=== PATIENT | female | born 2000 | race Caucasian/White ===

== ENCOUNTER 2019-06-20 09:12 | Emergency (ER) | payer MEDICAID, OTHER ==
[~2019-06-20] VITALS: Ht 162.6 cm; Wt 78.0 kg
[~2019-06-20 09:12] MED LIST: HYDR15SO7 PO; ONDA4TAB6 PO; SACC250C PO
[2019-06-20 09:49] LABS: BASOPHILS % (AUTO) 0.1 % (0-1); EOSINOPHILS % (AUTO) 0 % (0-6); HEMATOCRIT 48.4 % (35.0-45.0); HEMOGLOBIN 16.3 g/dl (12.0-16.0); LYMPHOCYTES # (AUTO) 0.8 X10'3 (1.1-4.8); MEAN CORPUSCULAR HEMOGLOBIN 31.3 PG (27.0-31.0); MEAN CORPUSCULAR HGB CONC 33.7 g/dL (33.0-36.5); MEAN PLATELET VOLUME 9.7 FL (7.4-10.4); MONOCYTES # (AUTO) 0.7 X10'3 (0-0.9); MONOCYTES % (AUTO) 4.6 % (2-12); NEUTROPHILS # (AUTO) 14.6 X10'3 (1.8-7.7); NEUTROPHILS % (AUTO) 90.3 % (42-75); PLATELET COUNT 267 X10'3 (140-440); RED BLOOD COUNT 5.21 X10'6 (4.20-5.60); RED CELL DISTRIBUTION WIDTH 13.8 % (11.5-14.5); WHITE BLOOD COUNT 16.2 X10'3 (4.5-11.0)
[2019-06-20 10:00] LABS: CLARITY,URINE SLIGHTLY CLOUDY (Clear); COLOR,URINE YELLOW (Yellow); GLUCOSE, URINE NEGATIVE (Neg); KETONES,URINE >=80 mg/dl (Neg); LEUKOCYTE ESTERASE ,URINE NEGATIVE (Neg); NITRITES, URINE NEGATIVE (Neg); OCCULT BLOOD,URINE SMALL (Neg); PH,URINE 5.5 (4.8-8.0); PROTEIN,URINE 100 mg/dl (Neg); URINE HCG NEGATIVE (NEG); UROBILINOGEN,URINE 0.2 E.U/dL (0.2-1.0)
[2019-06-20] MEDS ORDERED: ondansetron/PF 4mg/2ml inj IV ONE ×2 (10:00→12:15)
[2019-06-20] MEDS ORDERED: normal saline 1000ML IV soln IVB ONE ×2 (10:00→12:15)
[2019-06-20 10:01] LABS: UA COLLECTION TYPE NON-SPECIFIED
[2019-06-20 10:06] LABS: MUCUS STRANDS MODERATE /LPF (Neg)
[2019-06-20 10:07] LABS: ALANINE AMINOTRANSFERASE 30 U/L (12-78); ALBUMIN 4.7 G/DL (3.4-5.0); ALBUMIN/GLOBULIN RATIO 1.1 (1.1-1.5); ALKALINE PHOSPHATASE 111 IU/L (46-116); ANION GAP 26 (8-16); ASPARTATE AMINO TRANSFERASE 17 U/L (10-37); BILIRUBIN,TOTAL 0.8 MG/DL (0.1-1.0); BLOOD UREA NITROGEN 8 MG/DL (7-18); CALCIUM 9.7 MG/DL (8.5-10.1); CHLORIDE 100 MMOL/L (99-107); CREATININE 0.89 MG/DL (0.40-0.90); GLUCOSE 105 MG/DL (70-104); LIPASE 69 U/L (73-393); POTASSIUM 4.1 MMOL/L (3.5-5.1); SODIUM 137 MMOL/L (135-145); TOTAL PROTEIN 9.1 G/DL (6.4-8.2); eGFR 80 ML/MIN
[2019-06-20 10:10] LABS: BACTERIA,URINE 1+ /HPF (Neg); COARSE GRANULAR CAST 0-3 /LPF (NEGATIVE)
[2019-06-20 10:12] LABS: SQUAMOUS EPITHELIAL CELL,UR MODERATE /LPF (FEW); WBC,URINE 0-4 /HPF (0-4)
[2019-06-20] MEDS ORDERED: mag hydrox/Alum hydrox/simeth 30ml oral suspension PO ONE (10:20)
[2019-06-20] MEDS ORDERED: ketorolac trometh. 30mg/ml inj. IV ONE (10:20)
[2019-06-20] MEDS ORDERED: normal saline 1000ML IV soln IV ONE (11:25)
[2019-06-20 13:51] LABS: ALANINE AMINOTRANSFERASE 25 U/L (12-78); ALBUMIN 3.8 G/DL (3.4-5.0); ALBUMIN/GLOBULIN RATIO 1.1 (1.1-1.5); ALKALINE PHOSPHATASE 88 IU/L (46-116); ANION GAP 15 (8-16); ASPARTATE AMINO TRANSFERASE 13 U/L (10-37); BILIRUBIN,TOTAL 0.6 MG/DL (0.1-1.0); BLOOD UREA NITROGEN 6 MG/DL (7-18); CALCIUM 8.2 MG/DL (8.5-10.1); CHLORIDE 107 MMOL/L (99-107); CREATININE 0.75 MG/DL (0.40-0.90); GLUCOSE 90 MG/DL (70-104); POTASSIUM 4.3 MMOL/L (3.5-5.1); SODIUM 139 MMOL/L (135-145); TOTAL CARBON DIOXIDE 16.7 MMOL/L (24-32); TOTAL PROTEIN 7.2 G/DL (6.4-8.2); eGFR > 90 ML/MIN
[2019-06-20 14:19] VITALS: BP 106/45
[2019-06-20] MEDS ORDERED: dextrose 5%-1/2 normal saline 1,000 ML IV ONE (14:33)
[2019-06-20] MEDS ORDERED: iohexol 300mg/ml 100ml inj. ONE (14:38)
[2019-06-20] MEDS ORDERED: ONDA4TAB6 PO (15:34)
--- NOTE | 2019-06-20 17:05 | NUR ---
[facility] CALLED 20-25 MINUTE ETA
== END 2019-06-20 17:05 | disposition home or self-care (01) ==
LOC: ER 09:12
DX: R10.11 Right upper quadrant pain (principal); R10.13 Epigastric pain; R11.2 Nausea with vomiting, unspecified; F10.99 Alcohol use, unspecified with unspecified alcohol-induced disorder; Z79.899 Other long term (current) drug therapy; Y90.9 Presence of alcohol in blood, level not specified
CPT/HCPCS: 36415; 74176; 76700; 80053; 81001; 81025; 83605; 83690; 85025; 96361; 96374; 96375; 96376; 99284; J1885; J2405; J7030; J7040; Q9967

== ENCOUNTER 2020-04-15 09:44 | Day surgery (SDC) | payer BC ==
[2020-04-08 16:31] LABS: BASOPHILS % (AUTO) 0.4 % (0-1); EOSINOPHILS % (AUTO) 0.2 % (0-6); LYMPHOCYTES # (AUTO) 1.3 X10'3 (1.1-4.8); MEAN CORPUSCULAR HEMOGLOBIN 32.1 PG (27.0-31.0); MEAN CORPUSCULAR HGB CONC 33.8 g/dL (33.0-36.5); MEAN PLATELET VOLUME 8.9 FL (7.4-10.4); MONOCYTES # (AUTO) 0.3 X10'3 (0-0.9); MONOCYTES % (AUTO) 5.4 % (2-12); NEUTROPHILS # (AUTO) 4.1 X10'3 (1.8-7.7); PRE OP HEMATOCRIT 43.5 % (35.0-45.0); PRE OP HEMOGLOBIN 14.7 g/dL (12.0-16.0); PRE OP PLATELET COUNT 242 X10'3 (140-440); RED BLOOD COUNT 4.58 X10'6 (4.20-5.60)
[2020-04-08 16:45] LABS: PRE OP PROTIME 10.3 SECONDS (9.0-12.0)
[2020-04-08 16:49] LABS: ALBUMIN 4.2 G/DL (3.4-5.0); ALBUMIN/GLOBULIN RATIO 1.1 (1.1-1.5); ALKALINE PHOSPHATASE 72 IU/L (46-116); BLOOD UREA NITROGEN 14 MG/DL (7-18); BUN/CREATININE RATIO 17.5 (6.6-38.0); CALCIUM 9.6 MG/DL (8.5-10.1); CHLORIDE 101 MMOL/L (99-107); PRE OP ALT 26 U/L (30-65); PRE OP ANION GAP 8 (8-16); PRE OP AST 17 U/L (10-37); PRE OP BILIRUB, TOTAL 0.6 MG/DL (0.0-1.0); PRE OP GLUCOSE 102 MG/DL (70-104); PRE OP POTASSIUM 3.8 MMOL/L (3.4-5.1); PRE OP SODIUM 138 MMOL/L (135-145); TOTAL CARBON DIOXIDE 28.8 MMOL/L (24-32); eGFR 90 ML/MIN
[2020-04-08 17:04] LABS: HCG SERUM QL NEGATIVE
[~2020-04-15] VITALS: Ht 162.6 cm; Wt 63.0 kg
[2020-04-15] VITALS (10 sets, daily range): BP systolic 108–133; BP diastolic 52–84
[~2020-04-15 09:44] MED LIST changes: -HYDR15SO7 PO; +IBUP-860 PO; -ONDA4TAB6 PO; -SACC250C PO; +ceFAZolin 2gm in dextrose, iso 50 ML IV ONE; +famotidine 20mg tablet PO ONE; +ringers solution, lacted 1,000 ML IV SCH
[2020-04-15] MEDS ORDERED: diazepam 5mg tablet PO ONE (10:05)
[2020-04-15] MEDS ORDERED: BUPIVAcaine 0.25% w/Epi /PF 30ml vial ONE (11:31)
[2020-04-15] MEDS ORDERED: triamcinolone acetonide 40mg/ml inj ONE (11:32)
[2020-04-15] MEDS ORDERED: BUPIVACAINE liposomal/PF 13.3 MG/ML vial IM ONE (11:32)
[2020-04-15] MEDS ORDERED: Thrombin (Bovine) 5,000 unit vial TP ONE (11:32)
[2020-04-15] MEDS ORDERED: gelatin sponge, absorbable (Gelfoam 100) sponge TP ONE (11:32)
[2020-04-15] MEDS ORDERED: midazolam 2 mg/2 ml injection ONE ×2 (11:40→15:01)
[2020-04-15] MEDS ORDERED: fentaNYL /PF 50mcg/ml 5ml ampule ONE (11:41)
[2020-04-15] MEDS ORDERED: propofol inj 40 ML IV ONE (13:04)
[2020-04-15] MEDS ORDERED: fentaNYL/PF 50MCG/1 ML 2ML syringe ONE (13:09)
[2020-04-15] MEDS ORDERED: dexamethasone sod phosphate 4mg/ml inj. ONE (14:47)
[2020-04-15] MEDS ORDERED: acetaminophen 1,000mg/100ml IV 100 ML IV ONE (14:47)
[2020-04-15] MEDS ORDERED: ketorolac trometh. 30mg/ml inj. ONE (14:47)
[2020-04-15] MEDS ORDERED: ondansetron/PF 4mg/2ml inj ONE (14:47)
[2020-04-15] MEDS ORDERED: meperidine/PF 25mg/ml syringe ONE (14:53)
--- NOTE | 2020-04-15 14:54 | NUR ---
Received from OR via [facility] , accompanied by Anesthesiologist LEONIE and report given by Anesthesiolgist. PATIENT WITH 20G PIV IN RIGHT UE RUNNING LR AT 100. C.O. MILD PAIN TO BACK AREA. PUSH PULLS, SUPERVISOR CAB EQUAL. VSS. 10L MASK ON WITH 100% SATURATIONS. INCISION SITE TO BACK IS CDI. Addendum: 04/15/20 at 1515 by Gianfranco Quiros RN, RN Amended: Links added.
[2020-04-15] MEDS ORDERED: MIDAZolam 5mg/ml 2ml vial IV ONE (15:05)
[2020-04-15] MEDS ORDERED: morphine 4 MG/ML inj SYRINge IV PRN (15:05)
[2020-04-15] MEDS ORDERED: proCHLORperazine 10 MG/2 ml inj IV PRN (15:05)
[2020-04-15] MEDS ORDERED: morphine 2 MG/ML inj. syringe IV PRN (15:05)
[2020-04-15] MEDS ORDERED: ondansetron/PF 4mg/2ml inj IV PRN (15:05)
[2020-04-15] MEDS ORDERED: meperidine/PF 25mg/ml syringe IV PRN ×2 (15:05)
[2020-04-15] MEDS ORDERED: ringers solution, lacted 1,000 ML IV SCH (15:05)
[2020-04-15] MEDS: meperidine/PF 25mg/ml syringe IV PRN ×2 (15:22→15:46)
--- NOTE | 2020-04-15 16:24 | NUR ---
PATIENT AND FAMILY AND THEY HAVE VERBALIZED UNDERSTANDING, OPPORTUNITY TO ASK QUESTIONS GIVEN AND PATIENT COMFORTABLE WITH DC. IV TAKEN OUT WITHOUT COMPLICATION. PATIENT HAS MET ALL DC CRITERIA FOR DC HOME. I HAVE REVIEWED D/C INSTRUCTIONS WITH OUT VIA WHEELCHAIR WHERE PATIENT WAS TAKEN HOME WITH ALL BELONGINGS. FAMILY GAVE PATIENT TRANSPORT HOME. DRESSING TO BACK IS STILL CDI, FEMALE STUDENT ISABELA AMAYA TO ASSIST IN DRESSING PATIENT. SIG OTHER NATHANAEL KEEN TO TAKE PATIENT HOME. DISCUSSED INSTRUCTIONS WITH HIM WELL. Addendum: 04/15/20 at 1627 by Gianfranco Quiros RN, RN Amended: Links added.
== END 2020-04-15 16:24 | disposition home or self-care (01) ==
LOC: PAS 09:44
PROVIDERS: ATTEND Orthopaedic Surgery
DX: M51.17 Intervertebral disc disorders with radiculopathy, lumbosacral region (principal); F17.290 Nicotine dependence, other tobacco product, uncomplicated; F12.90 Cannabis use, unspecified, uncomplicated; K21.9 Gastro-esophageal reflux disease without esophagitis; Z79.01 Long term (current) use of anticoagulants; Z20.828 Contact with and (suspected) exposure to other viral communicable diseases; Z79.899 Other long term (current) drug therapy
CPT/HCPCS: 36415; 63030; 72100; 76000; 80053; 82948; 84703; 85025; 85610; 85730; 87635; A6402; C1758; C9290; J0131; J1100; J1885; J2175; J2250; J2270; J2405; J2704; J3010; J3301; J7050; J7120; A4215; A4618; A6449; A7000

== ENCOUNTER 2022-12-10 15:58 | Emergency (ER) | payer BC, MEDICAID ==
[~2022-12-10] VITALS: Ht 162.6 cm; Wt 99.4 kg
[~2022-12-10 15:58] MED LIST changes: -ceFAZolin 2gm in dextrose, iso 50 ML IV ONE; -famotidine 20mg tablet PO ONE; -ringers solution, lacted 1,000 ML IV SCH
[2022-12-10 16:41] LABS: URINE HCG POSITIVE (NEG)
[2022-12-10 16:42] LABS: BASOPHILS % (AUTO) 0.3 % (0-1); EOSINOPHILS % (AUTO) 0.2 % (0-6); HEMATOCRIT 45.7 % (35.0-45.0); HEMOGLOBIN 15.7 g/dl (12.0-16.0); LYMPHOCYTES # (AUTO) 1.4 X10'3 (1.1-4.8); MEAN CORPUSCULAR HEMOGLOBIN 32.2 PG (27.0-31.0); MEAN CORPUSCULAR HGB CONC 34.2 g/dL (33.0-36.5); MEAN CORPUSCULAR VOLUME 94.1 FL (78-98); MEAN PLATELET VOLUME 9.1 FL (7.4-10.4); MONOCYTES # (AUTO) 0.6 X10'3 (0-0.9); MONOCYTES % (AUTO) 6.1 % (2-12); NEUTROPHILS # (AUTO) 8.4 X10'3 (1.8-7.7); NEUTROPHILS % (AUTO) 80.4 % (42-75); PLATELET COUNT 294 X10'3 (140-440); RED BLOOD COUNT 4.86 X10'6 (4.20-5.60); RED CELL DISTRIBUTION WIDTH 13.3 % (11.5-14.5); WHITE BLOOD COUNT 10.5 X10'3 (4.5-11.0)
[2022-12-10 16:47] LABS: CLARITY,URINE CLOUDY (Clear); COLOR,URINE YELLOW (Yellow); GLUCOSE, URINE NEGATIVE (Neg); KETONES,URINE 40 mg/dl (Neg); LEUKOCYTE ESTERASE ,URINE NEGATIVE (Neg); NITRITES, URINE NEGATIVE (Neg); OCCULT BLOOD,URINE NEGATIVE (Neg); PH,URINE 5.5 (4.8-8.0); PROTEIN,URINE TRACE mg/dl (Neg); UROBILINOGEN,URINE 0.2 E.U/dL (0.2-1.0)
[2022-12-10 16:58] LABS: ALANINE AMINOTRANSFERASE 18 U/L (12-78); ALBUMIN/GLOBULIN RATIO 0.9 (1.1-1.5); ALKALINE PHOSPHATASE 111 IU/L (46-116); ANION GAP 9 (8-16); ASPARTATE AMINO TRANSFERASE 15 U/L (10-37); BILIRUBIN,TOTAL 0.6 MG/DL (0.1-1.0); BLOOD UREA NITROGEN 6 MG/DL (7-18); BUN/CREATININE RATIO 7.4 (10.0-20.0); CALCIUM 9.7 MG/DL (8.5-10.1); CHLORIDE 102 MMOL/L (99-107); CREATININE 0.81 MG/DL (0.40-0.90); GLUCOSE 108 MG/DL (70-104); LIPASE 53 U/L (73-393); POTASSIUM 3.7 MMOL/L (3.5-5.1); SODIUM 137 MMOL/L (135-145); TOTAL CARBON DIOXIDE 26.2 MMOL/L (24-32); TOTAL PROTEIN 8.3 G/DL (6.4-8.2); eGFR 87 ML/MIN
[2022-12-10 17:03] LABS: UA COLLECTION TYPE CLN CATCH MIDSTREAM
[2022-12-10 17:06] LABS: MUCUS STRANDS MANY /LPF (Neg); SQUAMOUS EPITHELIAL CELL,UR MANY /LPF (FEW)
[2022-12-10 17:07] LABS: BACTERIA,URINE 2+ /HPF (Neg); RBC,URINE 0-2 /HPF (0-2); WBC,URINE 0-4 /HPF (0-4)
[2022-12-10] MEDS ORDERED: normal saline 1000ML IV soln IVB ONE (18:25)
[2022-12-10] MEDS ORDERED: pantoprazole 40 MG vial IV ONE (18:25)
[2022-12-10] MEDS ORDERED: ondansetron/PF 4mg/2ml inj IV ONE (18:25)
[2022-12-10] MEDS ORDERED: pantoprazole 40MG/NS 100ML BAG 100 ML IV ONE (18:40)
[2022-12-10 19:18] LABS: BETA HCG,QUANTITATIVE 25182 mIU/ml
[2022-12-10] MEDS ORDERED: normal saline 1000ml 1,000 ML IV ONE (19:55)
[2022-12-10 20:00] VITALS: BP 147/89
[2022-12-10] MEDS ORDERED: ONDA4TAB12 PO (20:42)
== END 2022-12-10 20:58 | disposition home or self-care (01) ==
LOC: ER 15:59
DX: O21.0 Mild hyperemesis gravidarum (principal); Z3A.01 Less than 8 weeks gestation of pregnancy; G43.909 Migraine, unspecified, not intractable, without status migrainosus; I10 Essential (primary) hypertension
CPT/HCPCS: 36415; 80053; 81001; 81025; 83690; 84702; 85025; 96361; 96365; 96375; 99285; C9113; J2405; J7030

== ENCOUNTER 2025-05-03 18:01 | Emergency (ER) | payer MEDICAID ==
[~2025-05-03] VITALS: Ht 162.6 cm; Wt 102.0 kg
[~2025-05-03 18:01] MED LIST changes: +ONDA-243 PO
--- NOTE | 2025-05-03 19:08 | Physician Documentation ---
HPI ~ General Chief Complaint: Tooth Problem Stated Complaint: TOOTH PAIN Time Seen by MD: 19:03 Primary Medical Doctor: domenic hilario at [facility] History of Present Illness HPI Comment This is a 25-year-old female who reports known history of poor dentition, chronic wisdom teeth impaction, presents for evaluation of several days of progressive worsening right jaw pain, both upper and lower, but upper worse, the particular palliating factors, she reports that she has a difficulty opening her mouth and a longer able to open her mouth fully. This never happened in the past. [id number] medications are not helping. Reports subjective fever. Denies any difficulty breathing, denies voice changes or drooling. She vapes nicotine, uses marijuana, and drinks once a week. She states that there is a chance she might be . Medication Reconciliation Allergies: Coded Allergies: No Known Allergies (Unverified , 08/12/10) Scheduled PRN Ibuprofen (Ibu), 200 MG PO DAILY PRN for headache, (Reported) ONDANSETRON ODT 4mg tablet (Ondansetron Odt), 1-2 TABLET PO QID PRN for nausea/vomiting Past Medical History Past Medical History: Headache, Migraine, Hypertension Past Surgical History: no surgical history Other Past Family History: OBTAINED AND NON-CONTRIBUTORY TO CHIEF COMPLAINT Alcohol Use: Sober Drug Use: none Lives with: Mother, Family Lives In: Home Occupation: student Review of Systems ROS 10 point review of systems was performed and unless noted above in HPI is negative for acute process/complaint. Physical Exam Vital Signs: Temperature: 97.6, Source: Temporal, Heart Rate: 104, Respiratory Rate: 15, BP: 135/94, Pulse Oximetry: 95, Weight: 102.000 Physical Exam GENERAL: Awake, alert, oriented, GCS 15, no apparent distress, non-toxic appearing, answers questions, follows commands appropriately. Examined in triage, accompanied with significant other HEENT: Atraumatic, normocephalic, pupils equal, extraocular muscles intact, sclerae anicteric, mucus membranes moist, oropharynx is patent, no stridor. Poor dentition noted with multiple caries. The patient does have trismus. There is no floor of the mouth elevation. No drooling. No hot potato voice. No brawny submandibular erythema. NECK: supple, full active range of motion, trachea midline, no thyromegaly, no lymphadenopathy, no JVD. CARDIOVASCULAR: Tachycardic and regular rate/rhythm, no murmurs/gallops/rubs, Pulses are 2+ in all extremities and symmetric. Capillary refill less than 2 seconds. PULMONARY: Nonlabored, good air movement ,no respiratory distress, speaking in full sentences, clear to auscultation bilaterally, no wheezing, no ronchi, no rales, no accessory muscle use. GASTROINTESTINAL: Soft, non-tender, non-distended, normal active bowel sounds, no organomegaly, no pulsatile masses, no CVA tenderness. NEUROLOGIC: Lucid with normal mental status. Normal facial symmetry. Moves all extremities symmetrically and with purpose. No truncal ataxia. Speech is fluid without evidence of dysarthria or aphasia, no focal deficits appreciated. MUSCULOSKELETAL: There is full range of motion of all extremities. There is no joint pain or joint swelling or joint erythema. There is no muscle pain or tenderness or swelling. EXTREMITIES: warm, well-perfused, no cyanosis, no clubbing, no edema, no acute deformities. Skin: warm, dry, no rashes or lesions, no jaundice, no petechiae orpurpura. No ecchymosis. PSYCHIATRIC: Normal affect, normal insight, normal concentration. Focused exam: [] Progress Results/Orders Results/Orders Orders - ARSLAN OCHOA DO Ct Neck Soft Tissues (05/03/25 19:03) Ampicillin/Sulbac 3gm/Ns 100ml (Unasyn 3 (05/03/25 20:00) Culture Blood (05/03/25 19:03) Completed Orders - ARSLAN OCHOA DO Ct Neck Soft Tissues (05/03/25 19:03) Dexamethasone Inj (Decadron 10mg/Ml Inj) (05/03/25 19:03) Cbc/Diff (05/03/25 19:03) ESR (05/03/25 19:03) C-Reactive Protein (05/03/25 19:03) MG (05/03/25 19:03) Normal Saline 1000ml (0.9% Sodium Chlori (05/03/25 19:05) Hcg Serum Ql (05/03/25 19:03) CMP (05/03/25 19:03) Lacticsepsis (10/26/25 19:03) Iohexol 300mg/Ml 100ml Inj. (Omnipaque-3 (05/03/25 21:34) Morphine 4mg/Ml Inj. (Morphine Inj.) (05/03/25 21:40) Ondansetron Inj. (Zofran 4mg/2ml Vial) (05/03/25 21:40) Ketorolac Trometh 15mg/Ml Vial (Toradol (05/03/25 23:10) Medications Received in ER Medications (Trade) Dose Ordered Sig/Nirmala Route PRN Reason Start Time Stop Time Status Last Admin Dose Admin (Decadron 10mg/ ml inj) 10 mg ONCE STAT IV 05/03/25 19:03 05/03/25 19:06 DC 05/03/25 22:20 10 MG Ampicillin Sodium/ Sulbactam Sodium 100 ml @ 200 mls/hr Q6H IV 05/03/25 20:00 05/03/25 22:20 200 MLS/HR (0.9% sodium chloride (NS) 1000ml IV soln) 1,000 ml ONCE ONCE IVB 05/03/25 19:05 05/03/25 19:06 DC 05/03/25 22:05 1,000 ML (morphine inj.) 4 mg ONCE ONCE IV 05/03/25 21:40 05/03/25 21:41 DC 05/03/25 22:19 4 MG (Zofran 4mg/2ml vial) 4 mg ONCE ONCE IV 05/03/25 21:40 05/03/25 21:41 DC 05/03/25 22:19 4 MG Vital Signs 05/03/25 05/03/25 05/03/25 18:13 23:05 23:07 Temp 97.6 97.6 Pulse 104 92 Resp 15 16 16 B/P (MAP) 135/94 115/80 (92) Pulse Ox 95 98 Laboratory Tests Test 05/03/25 19:18 White Blood Count 9.0 Red Blood Count 4.79 Hemoglobin 14.2 Hematocrit 42.9 Mean Corpuscular Volume 89.6 Mean Corpuscular Hemoglobin 29.7 Mean Corpuscular Hemoglobin Concent 33.1 Red Cell Distribution Width 14.8 H Platelet Count 251 Mean Platelet Volume 9.2 Neutrophils (%) (Auto) 71.2 Lymphocytes (%) (Auto) 21.8 Monocytes (%) (Auto) 5.5 Eosinophils (%) (Auto) 1.0 Basophils (%) (Auto) 0.5 Neutrophils # (Auto) 6.4 Lymphocytes # (Auto) 2.0 Monocytes # (Auto) 0.5 Eosinophils # (Auto) 0.1 Basophils # (Auto) 0.0 CBC Comment Erythrocyte Sedimentation Rate 22 H Sodium Level 140 Potassium Level 3.9 Chloride Level 105 Carbon Dioxide Level 25.4 Anion Gap 10 Blood Urea Nitrogen 9 Creatinine 0.60 Estimated GFR/1.73 m2 > 90 BUN/Creatinine Ratio 15.0 Glucose Level 93 Lactic Acid Level 1.3 Calcium Level 8.9 Magnesium Level 2.1 Total Bilirubin 0.2 Aspartate Amino Transf (AST/SGOT) 13 Alanine Aminotransferase (ALT/SGPT) 25 Alkaline Phosphatase 153 H C-Reactive Protein 0.96 H Total Protein 8.1 Albumin 3.4 Globulin 4.7 H Albumin/Globulin Ratio 0.7 L Human Chorionic Gonadotropin, Qual Negative Chemistry Comments Microbiology Date/Time Source Procedure Growth Status 05/03/25 19:24 Blood Hand Left Blood Culture - Preliminary NEGATIVE (LESS THAN 24 HOURS) Resulted Medical Decision Making Additional information obtaine: old records, family Findings Facility Status: ED Holds, RME process The plan was discussed with the patient, who demonstrates clear understanding of the plan and is in agreement with the plan unless otherwise noted in the chart. All questions have been answered, all concerns were addressed unless otherwise documented. I was available throughout their ED stay for frequent reassessment and questions. Differential Diagnoses (considered and possible or likely): [Dental infection, dental abscess, myositis of muscles of mastication, peritonsillar abscess, retropharyngeal abscess, less likely Mario's angina, less likely osteomyelitis of the jaw] ??Differential Diagnoses (considered and unlikely, not requiring evaluation currently): [See above] MDM Data Please see HPI for the following: Independent Historians and external Records Review. Historian: [Patient] Independent Historians: ?[Record review] Medication Management: [Reviewed medication list] Social History and determinants: [Reviewed] Please see the body of the note for the following: Any independent interpretations of ECG, imaging studies. All vitals signs/haemodynamics, ordered tests were independently reviewed and interpreted by myself. Nursing triage complaint and vitals reviewed, additional nursing notes were reviewed as available and I agree unless otherwise noted or documented in contradiction in the chart Vital Signs: Independently reviewed Labs: Independently interpreted Imaging: Independently interpreted Old Medical Records: Independently reviewed, see HPI for relevant summary and information Pulse Oximetry: [96%] interpreted as [normal on room air] by me [Corporate Real Estate Specialist: Tachycardic Rate, Regular rhythm, no ectopy, sinus tachycardia. reviewed and interpreted by me] Additionally notably showing: [Who hemodynamics reviewed. The patient isn't febrile, initially tachycardic but improved. No evidence of hypotension respiratory distress. There is no leukocytosis. Normal platelets. Normal hemoglobin. Mildly elevated ESR. Chemistry is unremarkable. CRP is elevated. She is not . Advanced imaging was obtained showing lymphadenopathy but no abscess .] Tests considered but not ordered include: [Not applicable] Social Determinants of Health Impact: Patient was evaluated in [facility], [facility] [place] healthcare due to below par ratio of patient to medical providers. [] Comorbid Conditions Impacting Present Evaluation and Care/Treatment: [Poor dentition] Management Discussions with other Healthcare Providers: [Hospitalist regarding admission] Treatment and Disposition Medication Management (Given or considered): [Fluids, steroids, antibiotics]. See EMR for details Consideration for Hospitalization/Escalation/Deescalation of Care: Admission for observation has been considered, and appears to be necessary given presence of trismus. The patient likely we will require several rounds of IV antibiotics and steroids until resolution of trismus. ?ED Course:?[No clinical deterioration. No significant improvement either. In anticipation of eventual discharge after a period of observation with the resolution of trismus, antibiotics were already sent to the pharmacy for continuation of antimicrobial treatment on an outpatient basis.] ?Shared decision making:?[] Code status:?FULL Please see the full Electronic Medical Record for full details of nursing do cumentation, medications list, other records of complete past medical history and conditions, vital signs, laboratory studies, and any radiologic study interpretations by radiologists. Portions of this note were completed using Qompium dictation software and as a result there may exist minor errors in spelling. I have reviewed elements of past family and social history and agree as included in note. Differential Dx:Considerations: Include: Other (See the body of the main note) Departure Time of Disposition: 23:40 Disposition: ADMITTED INPATIENT Impression: Primary Impression: Dental abscess Additional Impressions: Dental caries Trismus Condition: Stable Discharge Instructions: Dental Pain Referrals: NO PRIMARY CARE PROVIDER (PCP) Prescriptions Amox Tr/Potassium Clavulanate (Augmentin 875-125 Tablet) 1 Each Tablet 1 TAB PO Q12H for 10 Days, #20 TAB Prov: ARSLAN OCHOA DO 05/03/25 Signature Scribe Signature: No scribe Attestation: Date: May 03, 2025 Time: 19:08 This note accurately reflects clinical decisions, work performed by myself, DO DON Dotson NICHOLAS M DO May 03, 2025 19:08
[2025-05-03 19:35] LABS: MEAN PLATELET VOLUME 9.2 FL (7.4-10.4); RED CELL DISTRIBUTION WIDTH 14.8 % (11.5-14.5)
[2025-05-03 19:53] LABS: HCG SERUM QL NEGATIVE
[2025-05-03 19:54] LABS: CREATININE 0.60 MG/DL (0.40-0.90); TOTAL CARBON DIOXIDE 25.4 MMOL/L (24-32); eCRCL 122 ML/MIN; eGFR > 90 ML/MIN
[2025-05-03] MEDS ORDERED: iohexol 300mg/ml 100ml inj. ONE (21:34)
[2025-05-03] MEDS: normal saline 1000ML IV soln IVB ONE (22:05)
[2025-05-03] MEDS: morphine 4 MG/ML inj SYRINge IV ONE (22:19)
[2025-05-03] MEDS: ondansetron/PF 4mg/2ml inj IV ONE (22:19)
[2025-05-03] MEDS: dexamethasone sod phosphate 10mg/ml inj IV STA (22:20)
[2025-05-03] MEDS: ampicillin/sulbac 3gm/NS 100ml 100 ML IV SCH (22:20)
--- NOTE | 2025-05-03 22:38 | RADIOLOGY REPORT ---
EXAM: CT CT NECK SOFT TISSUES W/ IV CONTRAST INDICATION: R upper and lower jaw pain, trismus Exam Date: 05/03/2025 09:55 PM COMPARISON: None TECHNIQUE: CT of the neck with intravenous contrast. RADIATION DOSE: CTDIvol: 16.23 mGy, DLP: 383.5 mGy*cm FINDINGS: Evaluation is mildly degraded by streak artifact from dental hardware. There are nonspecific mildly prominent cervical nodes. The fat planes of the neck appear intact. The airway and larynx are unremarkable. The parotid, submandibular and thyroid glands are unremarkable. The vascular structures of the neck appear patent. The limited visualized portions of the brain are unremarkable. The osseous structures are unremarkable. IMPRESSION: 1. Nonspecific mildly prominent cervical nodes.
[2025-05-03] MEDS: ketorolac trometh 15mg/ml vial 15 MG/ML ML IV ONE (23:39)
[2025-05-03] MEDS ORDERED: AMOX-117 PO (23:41)
[2025-05-04 00:10] VITALS: BP 132/96; PULSE 92; RESP 16; TEMP 97.6; O2SAT 97
[2025-05-05] MEDS ORDERED: DIAZ2TAB PO (19:25)
== END 2025-05-04 00:15 | disposition left against medical advice (07) ==
LOC: ER 18:02
DX: K04.7 Periapical abscess without sinus (principal); K02.9 Dental caries, unspecified; R25.2 Cramp and spasm; I10 Essential (primary) hypertension; F12.90 Cannabis use, unspecified, uncomplicated; F17.290 Nicotine dependence, other tobacco product, uncomplicated
CPT/HCPCS: 36415; 70491; 80053; 83605; 83735; 84703; 85025; 85651; 86140; 87040; 87077; 87186; 96365; 96375; 99285; J0295; J1100; J1885; J2270; J2405; J7030; Q9967

== ENCOUNTER 2025-05-05 15:04 | Emergency (ER) | payer MEDICAID ==
[~2025-05-05] VITALS: Ht 162.6 cm; Wt 113.6 kg
[~2025-05-05 15:04] MED LIST changes: +AMOX-117 PO
--- NOTE | 2025-05-05 15:53 | Physician Documentation ---
HPI ~ General Chief Complaint: Tooth Problem Stated Complaint: RECHECK Time Seen by MD: 15:13 Primary Medical Doctor: renetta lee obgyn at [facility] History of Present Illness HPI Comment This is a 25-year-old female who presents back to the emergency department due to right-sided dental pain, patient has been seen two days prior and advised to remain at the hospital for IV antibiotics due to trismus at the time, patient was discharged with oral antibiotics however returns as her symptoms are not significantly improving. Patient does report facial swelling has decreased significantly. Medication Reconciliation Allergies: Coded Allergies: No Known Allergies (Unverified , 08/12/10) Scheduled Amox Tr/Potassium Clavulanate (Augmentin 875-125 Tablet), 1 TAB PO Q12H Scheduled PRN Diazepam (Valium), 1 TAB PO TID PRN for muscle spasms Ibuprofen (Ibu), 200 MG PO DAILY PRN for headache, (Reported) ONDANSETRON ODT 4mg tablet (Ondansetron Odt), 1-2 TABLET PO QID PRN for nausea/vomiting Past Medical History Past Medical History: Headache, Migraine, Hypertension Past Surgical History: no surgical history Other Past Family History: OBTAINED AND NON-CONTRIBUTORY TO CHIEF COMPLAINT Alcohol Use: Sober Drug Use: none Lives with: Mother, Family Lives In: Home Occupation: student Review of Systems ROS As stated above in the HPI, otherwise all systems are reviewed and negative. Physical Exam Vital Signs: Temperature: 98.9, Heart Rate: 110, Respiratory Rate: 16, BP: 143/89, Pulse Oximetry: 98, Weight: 113.640 Oxygen Flow Rate: 0 Physical Exam VITALS: Reviewed and as above. GENERAL: Alert, nontoxic appearing, no apparent distress. HEENT: Mild Trismus present. No drooling, no voice hoarseness, no elevation of the tongue, no submandibular swelling, no facial swelling RESPIRATORY: No increased work of breathing, no respiratory distress, speaking in full clear sentences Progress Results/Orders Results/Orders Completed Orders - ANDRAE TAYLOR Cbc/Diff (05/05/25 16:07) BMP (05/05/25 16:07) Ketorolac Trometh 15mg/Ml Vial (Toradol (05/05/25 18:30) Diazepam Inj (Valium Inj) (05/05/25 18:30) Medications Received in ER Medications (Trade) Dose Ordered Sig/Nirmala Route PRN Reason Start Time Stop Time Status Last Admin Dose Admin (Toradol injection) 15 mg ONCE ONCE IM 05/05/25 18:30 05/05/25 18:33 DC 05/05/25 18:42 15 MG (Valium inj) 5 mg ONCE ONCE IM 05/05/25 18:30 05/05/25 18:32 DC 05/05/25 18:42 5 MG Vital Signs 05/05/25 05/05/25 05/05/25 05/05/25 15:09 17:45 18:42 19:32 Temp 98.9 98.3 98.6 Pulse 110 89 82 Resp 16 16 18 18 B/P (MAP) 143/89 115/73 (87) 118/72 Pulse Ox 98 98 99 O2 Flow Rate 0 0 Laboratory Tests Test 05/05/25 16:38 White Blood Count 9.1 Red Blood Count 4.57 Hemoglobin 13.7 Hematocrit 40.8 Mean Corpuscular Volume 89.2 Mean Corpuscular Hemoglobin 29.9 Mean Corpuscular Hemoglobin Concent 33.6 Red Cell Distribution Width 14.9 H Platelet Count 233 Mean Platelet Volume 9.3 Neutrophils (%) (Auto) 60.2 Lymphocytes (%) (Auto) 32.6 Monocytes (%) (Auto) 6.3 Eosinophils (%) (Auto) 0.6 Basophils (%) (Auto) 0.3 Neutrophils # (Auto) 5.5 Lymphocytes # (Auto) 3.0 Monocytes # (Auto) 0.6 Eosinophils # (Auto) 0.1 Basophils # (Auto) 0.0 CBC Comment Sodium Level 141 Potassium Level 3.7 Chloride Level 105 Carbon Dioxide Level 27.6 Anion Gap 8 Blood Urea Nitrogen 11 Creatinine 0.73 Estimated GFR/1.73 m2 > 90 BUN/Creatinine Ratio 15.1 Glucose Level 89 Calcium Level 8.7 Albumin 3.4 Chemistry Comments Medical Decision Making Additional information obtaine: old records Findings As patient is otherwise well-appearing and reporting symptoms have not worsened including no fever or difficulty swallowing with shared decision-making patient would like to trial continued outpatient management with additional pain management options for jaw pain. With shared decision-making repeat imaging we will be deferred as patient's symptoms have not worsened, patient treated with Toradol and Valium in the emergency department with good response was able to open jaw wider without pain. Patient discharged on short course of Valium for jaw muscle spasm and will continue previously prescribed oral antibiotics. Patient provided careful return to care precautions, follow up instructions, and home care instructions which she verbalized understanding of. CURES report run and consulted prior to controlled prescribing. Differential Dx:Considerations: Include: Alveolar fracture, Alveolar osteitis, ANUG, Facial Cellulitis, Periapical abscess, Peridontal abscess, Post-extraction bleeding, Pulpitis, Tooth avulsion, Tooth eruption, Tooth Fracture, Trigeminal neuralgia, Tooth subluxation, Other (Mario's angina, tetany) Departure Time of Disposition: 19:20 Disposition: HOME / SELF CARE / HOMELESS Impression: Primary Impression: Toothache Additional Impression: Trismus Condition: Improved Discharge Instructions: Dental Pain Additional Instructions: As we discussed please take the Valium for severe jaw pain for muscle spasms in your draw, continue to take your previously prescribed antibiotics, please r eturn to the emergency department if her symptoms worsen. Please follow up with your primary care provider in the next few days. Please return to the emergency department for any new or worsening concerning symptoms including difficulty breathing, inability to swallow, or if you develop a fever. Do not drive or operate heavy machinery while under the influence of Valium, additionally do not combine this medication with other medications that make you drowsy including muscle relaxers, anxiety medications, opioids or alcohol. Referrals: NO PRIMARY CARE PROVIDER (PCP) Prescriptions Diazepam (Valium) 2 Mg Tablet 1 TAB PO TID PRN for muscle spasms for 3 Days, #9 TAB 0 Refills Prov: ANDRAE TAYLOR 05/05/25 Education Educated: Patient Educated regarding: diagnosis, treatment, prognosis, need for follow up Signature Scribe Signature: No scribe Attestation: The note accurately reflects work and decisions made by me.MADELINE Garcia 05/06/25 00:33 ANDRAE TAYLOR May 05, 2025 15:53
[2025-05-05 17:01] LABS: MEAN PLATELET VOLUME 9.3 FL (7.4-10.4); RED CELL DISTRIBUTION WIDTH 14.9 % (11.5-14.5)
[2025-05-05 17:14] LABS: CREATININE 0.73 MG/DL (0.40-0.90); TOTAL CARBON DIOXIDE 27.6 MMOL/L (24-32); eCRCL 100 ML/MIN; eGFR > 90 ML/MIN
[2025-05-05] MEDS: ketorolac trometh 15mg/ml vial 15 MG/ML ML IM ONE (18:42)
[2025-05-05] MEDS: diazepam inj 5 MG/ML inj. IM ONE (18:42)
[2025-05-05] MEDS ORDERED: DIAZ2TAB PO (19:25)
[2025-05-05 19:32] VITALS: BP 118/72; PULSE 82; RESP 18; TEMP 98.6; O2SAT 99
== END 2025-05-05 19:35 | disposition home or self-care (01) ==
LOC: ER 15:04
DX: K08.89 Other specified disorders of teeth and supporting structures (principal); R25.2 Cramp and spasm; I10 Essential (primary) hypertension; G43.909 Migraine, unspecified, not intractable, without status migrainosus
CPT/HCPCS: 36415; 80048; 85025; 96372; 99284; J1885; J3360